=== PATIENT | female | born 1985 | race African-American/Black ===

== ENCOUNTER 2019-03-21 15:05 | Inpatient (IN) | payer MEDICAID ==
[~2019-03-21] VITALS: Ht 165.1 cm; Wt 63.2 kg
--- NOTE | 2019-03-21 15:08 | NUR ---
ED Nurse Note: Pt arrived in the ED from home with c/o of Abdominal Pain, N/V x 1 today, started since yesterday. Pt has history of Asthma and Pacreatitis. Pt has allergies to Iodine. Placed on bed, hooked to patient services rep.
--- NOTE | 2019-03-21 15:10 | Emergency Room Report ---
History of Present Illness General Chief Complaint: Abdominal Pain Source: Patient, EMS Present Illness HPI Disclaimer: Please note that this report is being documented using DRAGON technology. This can lead to erroneous entry secondary to incorrect interpretation by the dictating instrument. HPI: 33-year-old female presents for evaluation of abdominal pain. She has a history of alcohol abuse and pancreatitis. Symptoms began 3 days ago with persistent epigastric and left upper quadrant sharp stabbing abdominal pain that is nonradiating. Persistent nausea, vomiting and diarrhea. Denies hematemesis or hematochezia or melena. Denies intra-abdominal surgeries in the past. Last drink was 2 days ago. Patient was noted to be tachycardic, in distress and hypoglycemic by EMS en route with a fingerstick glucose of 47. Given oral glucose and oral Zofran. PMH: Pancreatitis, tonsillectomy PSH: Tonsillectomy Allergies: Iodine but tolerated IV contrast in the past Social Hx: Alcohol abuse, current tobacco use Allergies: Coded Allergies: IODINE (Unverified Allergy, Unknown, 03/21/19) Patient History Now: No Nursing Documentation-PMH Hx Asthma: Yes Review of Systems All Other Systems: negative except mentioned in HPI Physical Exam Vital Signs Date Time Temp Pulse Resp B/P (MAP) Pulse Ox O2 Delivery O2 Flow Rate FiO2 03/21/19 14:59 98.4 90 18 130/90 (103) 98 Room Air General: Awake and alert, appears uncomfortable, doubled over in the gurney holding her abdomen. HEENT: NC/AT. EOMI. Cardiovascular: RRR. S1 and S2 normal. No murmur appreciated Resp: Normal work of breathing. No cough, wheezing or crackles appreciated Abdomen: Abdomen is soft, nondistended. Very tender to palpation in the upper quadrants, epigastrium, periumbilical region. Skin: Intact. No abrasions, laceration or rash over the exposed skin MSK: Normal tone and bulk. Moving all extremities. No obvious deformity. Neuro: Awake and alert. Mentating appropriately. Medical Decision Making Diagnostic Impression: Primary Impression: Pancreatitis Additional Impressions: Fatty liver Elevated liver enzymes ER Course 33-year-old female with history of alcohol induced pancreatitis presents for evaluation of abdominal pain vomiting hypoglycemia. Differential includes was not limited to acute pancreatitis, necrotizing infection, intra-abdominal abscess, bowel obstruction, cholecystitis, peptic ulcer disease, gastroenteritis , viral syndrome, diverticulitis, appendicitis. She will be ordered IV fluids, antiemetics, antacids, pain medication. Broad metabolic and infectious work-up initiated. Will obtain a CT scan of the abdomen and pelvis with IV contrast. She will be treated with Benadryl prior noting a hive allergic reaction to iodine but has tolerated many abdominal scans in the past at other facilities according to patient. Laboratory Tests Test 03/21/19 15:30 White Blood Count 6.0 K/UL (4.8-10.8) Red Blood Count 4.55 M/UL (4.20-5.40) Hemoglobin 16.3 G/DL (12.0-16.0) H Hematocrit 45.7 % (37.0-47.0) Mean Corpuscular Volume 101 FL (80-99) H Mean Corpuscular Hemoglobin 35.7 PG (27.0-31.0) H Mean Corpuscular Hemoglobin Concent 35.6 G/DL (32.0-36.0) Red Cell Distribution Width 11.6 % (11.6-14.8) Platelet Count 213 K/UL (150-450) Mean Platelet Volume 6.3 FL (6.5-10.1) L Neutrophils (%) (Auto) 86.2 % (45.0-75.0) H Lymphocytes (%) (Auto) 7.9 % (20.0-45.0) L Monocytes (%) (Auto) 5.3 % (1.0-10.0) Eosinophils (%) (Auto) 0.0 % (0.0-3.0) Basophils (%) (Auto) 0.6 % (0.0-2.0) Urine Color Yellow Urine Appearance Slightly cloudy Urine pH 6 (4.5-8.0) Urine Specific [place] 1.025 (1.005-1.035) Urine Protein 2+ (NEGATIVE) H Urine Glucose (UA) Negative (NEGATIVE) Urine Ketones 4+ (NEGATIVE) H Urine Blood Negative (NEGATIVE) Urine Nitrite Negative (NEGATIVE) Urine Bilirubin Negative (NEGATIVE) Urine Urobilinogen Normal MG/DL (0.0-1.0) Urine Leukocyte Esterase Negative (NEGATIVE) Urine RBC 0-2 /HPF (0 - 2) Urine WBC 0-2 /HPF (0 - 2) Urine Squamous Epithelial Cells Many /LPF (NONE/OCC) H Urine Bacteria Few /HPF (NONE) Urine HCG, Qualitative Negative (NEGATIVE) Sodium Level 135 MMOL/L (136-145) L Potassium Level 5.0 MMOL/L (3.5-5.1) Chloride Level 95 MMOL/L (98-107) L Carbon Dioxide Level 19 MMOL/L (21-32) L Anion Gap 21 mmol/L (5-15) H Blood Urea Nitrogen 13 mg/dL (7-18) Creatinine 0.9 MG/DL (0.55-1.30) Estimate Glomerular Filtration Rate > 60 mL/min (>60) Glucose Level 83 MG/DL (74-106) Calcium Level 10.0 MG/DL (8.5-10.1) Total Bilirubin 1.6 MG/DL (0.2-1.0) H Direct Bilirubin 0.7 MG/DL (0.0-0.3) H Aspartate Amino Transferase (AST) 359 U/L (15-37) H Alanine Aminotransferase (ALT) 189 U/L (12-78) H Alkaline Phosphatase 151 U/L (46-116) H Total Protein 8.9 G/DL (6.4-8.2) H Albumin 4.3 G/DL (3.4-5.0) Globulin 4.6 g/dL Albumin/Globulin Ratio 0.9 (1.0-2.7) L Lipase 968 U/L (73-393) H CT/MRI/US Diagnostic Results CT/MRI/US Diagnostic Results : Impression Preliminary Findings Only See Final Report For Complete Findings CT ABDOMEN & PELVIS With Contrast: Stranding and edema at the body and tail of the pancreas consistent with pancreatitis, clinically correlate Hepatic steatosis Lung bases are clear No bowel dilation or free air Normal caliber appendix without secondary signs 3.2 cm cystic lesion right ovary No free fluid Radiologist: Evaristo Bell M.D. Reevaluation Time: 18:48 Last Vital Signs Date Time Temp Pulse Resp B/P (MAP) Pulse Ox O2 Delivery O2 Flow Rate FiO2 03/21/19 14:59 98.4 90 18 130/90 (103) 98 Room Air Reevaluation Impression Labs show elevated lipase consistent with pancreatitis as well as elevated LFTs , alkaline phosphatase, bilirubin. No significant white count, no evidence of urinary tract infection. CT consistent with acute pancreatitis but no evidence of necrosis or abscess. Ultrasound was ordered showing fatty liver with trace fluid around the pancreas but no evidence of stones or acute cholecystitis. Formal reads are pending. Patient continues to receive IV fluids, pain medication and antiemetics. She will be admitted for acute pancreatitis to panel. Disposition: ADMITTED INPATIENT Condition: Serious Cezar Jimenez MD Mar 21, 2019 15:10
[2019-03-21] MEDS ORDERED: Omnipaque-300 100ml vial INJ PRN (15:15)
[2019-03-21] MEDS ORDERED: HYDROmorphone 1mg/ml Carpuject IVP ONE (15:15)
[2019-03-21] MEDS ORDERED: DiphenhydrAMINE 50mg/ml Inj IVP ONE ×2 (15:15→19:00)
[2019-03-21 15:43] LABS: HEMATOCRIT 45.7 % (37.0-47.0); HEMOGLOBIN 16.3 G/DL (12.0-16.0); MEAN CORPUSCULAR VOLUME 101 FL (80-99); PLATELET COUNT 213 K/UL (150-450); RED BLOOD COUNT 4.55 M/UL (4.20-5.40); RED CELL DISTRIBUTION WIDTH 11.6 % (11.6-14.8)
[2019-03-21 15:46] LABS: NEUTROPHILS % (AUTO) 86.2 % (45.0-75.0)
[2019-03-21 15:47] LABS: BASOPHILS % (AUTO) 0.6 % (0.0-2.0); LYMPHOCYTES % (AUTO) 7.9 % (20.0-45.0); MONOCYTES % (AUTO) 5.3 % (1.0-10.0)
[2019-03-21 15:48] LABS: ANION GAP 21 mmol/L (5-15); BLOOD UREA NITROGEN 13 mg/dL (7-18); CARBON DIOXIDE 19 MMOL/L (21-32); CHLORIDE 95 MMOL/L (98-107); CREATININE 0.9 MG/DL (0.55-1.30); SODIUM 135 MMOL/L (136-145)
[2019-03-21 15:51] LABS: APPEARANCE,URINE SLIGHTLY CLOUDY; BILIRUBIN, URINE NEGATIVE (NEGATIVE); GLUCOSE, URINE (UA) NEGATIVE (NEGATIVE); KETONES,URINE 4+ (NEGATIVE); LEUKOCYTE ESTERASE ,URINE NEGATIVE (NEGATIVE); NITRITE,URINE NEGATIVE (NEGATIVE); PH,URINE 6 (4.5-8.0); PROTEIN,URINE 2+ (NEGATIVE); UROBILINOGEN,URINE NORMAL MG/DL (0.0-1.0)
[2019-03-21 15:53] LABS: COLOR,URINE YELLOW
[2019-03-21 15:59] LABS: ALANINE AMINOTRANSFERASE 189 U/L (12-78); ALBUMIN 4.3 G/DL (3.4-5.0); ALBUMIN/GLOBULIN RATIO 0.9 (1.0-2.7); ALKALINE PHOSPHATASE 151 U/L (46-116); ASPARTATE AMINO TRANSFERASE 359 U/L (15-37); BILIRUBIN,TOTAL 1.6 MG/DL (0.2-1.0)
[2019-03-21 16:00] VITALS: BP 111/63
[2019-03-21 16:10] LABS: BILIRUBIN,DIRECT 0.7 MG/DL (0.0-0.3)
--- NOTE | 2019-03-21 16:13 | NUR ---
ED Nurse Note: pt remains alert and oriented x4 tolerates small amt ice chips well.
[2019-03-21 17:00] VITALS: BP 102/88
--- NOTE | 2019-03-21 17:19 | NUR ---
ED Nurse Note: pt relates no inpt admissions in past 30 days, no swabs obtained as pt doesnt meet criteria. pt remains as previous no increased discomfort
--- NOTE | 2019-03-21 17:50 | NUR ---
ED Nurse Note: pt to ct scan
--- NOTE | 2019-03-21 18:44 | Diagnostic Imaging Report ---
Indication: Abdominal pain Technique: Spiral acquisitions obtained through the abdomen and pelvis. No oral contrast utilized, per emergency room physician request. No IV contrast utilized, due to history of contrast reaction. Multiplanar reconstructions were generated. Total dose length product 598 mGycm. CTDIvol(s) 11 mGy. Dose reduction achieved using automated exposure control Comparison: None Findings: There are colonic diverticula. No evidence of acute diverticulitis demonstrated. The appendix is normal, best appreciated on the coronal reconstructed images. No small bowel distention. No free or loculated intraperitoneal gas or fluid is evident. The distal esophagus, stomach, duodenum are unremarkable. The pancreatic margins are somewhat indistinct, and there is slight increased attenuation of the fat immediately surrounding the pancreas. No gallstones or biliary ductal dilatation are visualized. No focal peripancreatic fluid collections are evident. Lack of IV contrast limits assessment of solid organs. The liver is enlarged and diffusely hypoattenuating. No gross focal abnormality demonstrated. The spleen, adrenals, kidneys are unremarkable. No retroperitoneal or mesenteric mass or adenopathy. There is a 3.4 cm cyst in the right ovary. The included lung bases are clear. The bones demonstrate minimal degenerative change of the lumbosacral junction Impression: Indistinct pancreatic margins and increased attenuation of the peripancreatic fat, consistent with acute pancreatitis. Evaluation for necrosis is limited in the absence of IV contrast Enlarged fatty liver 3.4 cm right ovarian cyst, almost certainly benign This agrees with the preliminary interpretation provided overnight by [facility] teleradiology service. The CT scanner at [facility] is accredited by the [employer] and the scans are performed using protocols designed to limit radiation exposure to as low as reasonably achievable to attain images of sufficient resolution adequate for diagnostic evaluation.
[2019-03-21] MEDS ORDERED: Morphine Sulfate 4mg/ml Inj (IV USE ONLY) IVP PRN (19:00)
--- NOTE | 2019-03-21 19:01 | NUR ---
ED Nurse Note: ct resulted and pt to have abd u/s before admission to med surg. charger operator helper aware. pt with meds being given by rn
--- NOTE | 2019-03-21 19:10 | NUR ---
ED Nurse Note: pt care endorsed by Katharine Chapin RN. pt does not appear to be in any distress at this time. pt has fluids running and US is at bedside.
--- NOTE | 2019-03-21 19:15 | NUR ---
HAND-OFF: Report given to NIMO Dyer.
--- NOTE | 2019-03-21 19:42 | NUR ---
NURSE NOTES: Received a report from INMO Dyer. Awaiting for the pt's arrival.
[2019-03-21] MEDS ORDERED: VENTOLIN HFA18 GM INH (19:43)
--- NOTE | 2019-03-21 19:44 | NUR ---
ED Nurse Note: pt care endorsed to admitting nurse NIMO Alcantar
[2019-03-21 19:52] VITALS: BP 108/92
[2019-03-21 20:00] VITALS: BP 124/86
--- NOTE | 2019-03-21 20:00 | NUR ---
NURSE NOTES: Pt arrived in the unit. AAOX4. Able to make needs known. On room air. Belongings signed. Bed in lowest position. Bed alarm is on. Call light within reach. Will continue to monitor.
--- NOTE | 2019-03-21 20:02 | NUR ---
NURSE NOTES: Called Dr. Vitale for admission orders. Awaiting for call back.
--- NOTE | 2019-03-21 21:00 | NUR ---
NURSE NOTES: BS: 86
[2019-03-21] MEDS ORDERED: NKM (21:40)
[2019-03-21] MEDS: Morphine Sulfate 2mg/ml Inj(IV/IM USE ONLY) IVP PRN (22:52)
--- NOTE | 2019-03-21 23:27 | NUR ---
NURSE NOTES: Called Dr. Preston because the pt is c/o abdominal pain, rated the pain 8/10. Awaiting for call back.
--- NOTE | 2019-03-21 23:57 | NUR ---
NURSE NOTES: Called Dr. Preston for the 2nd time because the pt is still c/o abdominal pain, rated the pain 8/10. Awaiting for call back.
[2019-03-22] VITALS: BP 122/85
--- NOTE | 2019-03-22 00:47 | NUR ---
NURSE NOTES: Called Dr. Preston for the 3rd time because the pt is still c/o abdominal pain, rated the pain 8/10. Awaiting for call back. Nursing Service Coordinator [facility] Lupe made aware.
--- NOTE | 2019-03-22 01:30 | NUR ---
NURSE NOTES: Informed Nursing Household Chores Lupe that no response from Dr. Preston. Nursing Household Chores Lupe will call Dr. Preston.
--- NOTE | 2019-03-22 01:35 | NUR ---
NURSE NOTES: Nursing Refurbish Technician Lupe called Dr. Preston, but no response yet.
[2019-03-22] MEDS: Morphine Sulfate 2mg/ml Inj(IV/IM USE ONLY) IVP PRN ×2 (02:59→06:45)
[2019-03-22 04:00] VITALS: BP 138/86
--- NOTE | 2019-03-22 04:45 | Consultation ---
DATE OF CONSULTATION: 03/21/2019 GASTROENTEROLOGY CONSULTATION CONSULTING PHYSICIAN: Angie Davis M.D. CHIEF COMPLAINT: I was asked to see this patient by Dr. Mercedes Vitale for evaluation of alcoholic pancreatitis. HISTORY OF PRESENT ILLNESS: The patient is a 33-year-old woman with extensive alcohol use history, who comes into the hospital with a two-day history of severe epigastric abdominal pain with nausea and vomiting. The patient has had episodes of pancreatitis before and has been admitted to other hospital. She drinks one half to one pint of liquor daily. She has been noting this for about 10 years. In the emergency room, she was found to have pancreatitis by another criteria with a lipase of [address] scan therefore should be repeated. PAST MEDICAL HISTORY: History of asthma and history of kidney stones. FAMILY HISTORY: Positive for diabetes. SOCIAL HISTORY: The patient smokes cigarettes and also drinks alcohol as described above. She is not and has no children. MEDICATIONS: See the chart list for details. REVIEW OF SYSTEMS: Otherwise negative. PHYSICAL EXAMINATION: GENERAL: A well-developed and well-nourished woman seen in her room. HEENT: Normocephalic and atraumatic. Sclerae are anicteric. Oropharynx is clear. NECK: Supple. CHEST: Clear to auscultation. CARDIOVASCULAR: Revealed a regular rate. ABDOMEN: Soft, but tender, especially in the epigastric region without guarding, rebound, or masses. EXTREMITIES: Revealed no edema. LABORATORY DATA: Noted. ASSESSMENT: This patient presents with alcoholic pancreatitis with both the CT scan criteria as well as clinical and laboratory criteria met. In addition, her liver profile is consistent with alcoholic hepatitis. She was strongly advised to discontinue drinking indefinitely as the only remedy to her recurrent episodes of pancreatitis. Her management is conservative and at this point should be kept NPO today and diet can be advanced tomorrow as tolerated. I will increase IV fluids since the first 24-hour IV hydration should be significant. Her blood pressure and volume status and laboratory parameters should be now followed closely. Pain medications can be given as needed and I agree with acid blockade with Pepcid or for Protonix. RECOMMENDATIONS: Per above discussion and per orders written in the chart. Thank you for asking me to participate in the care of this patient. Angie Davis M.D. DR: RUBEN JOB#: [id number] CC:
[2019-03-22 07:15] LABS: ALANINE AMINOTRANSFERASE 121 U/L (12-78); ALBUMIN 3.5 G/DL (3.4-5.0); ALKALINE PHOSPHATASE 110 U/L (46-116); ANION GAP 17 mmol/L (5-15); ASPARTATE AMINO TRANSFERASE 155 U/L (15-37); BILIRUBIN,TOTAL 1.1 MG/DL (0.2-1.0); BLOOD UREA NITROGEN 13 mg/dL (7-18); CALCIUM 9.2 MG/DL (8.5-10.1); CARBON DIOXIDE 19 MMOL/L (21-32); CHLORIDE 100 MMOL/L (98-107); CREATININE 0.8 MG/DL (0.55-1.30); POTASSIUM 3.9 MMOL/L (3.5-5.1); SODIUM 136 MMOL/L (136-145)
--- NOTE | 2019-03-22 07:15 | NUR ---
HAND-OFF: Report given to NIMO Roblero.
[2019-03-22 07:16] LABS: BILIRUBIN,DIRECT 0.4 MG/DL (0.0-0.3)
--- NOTE | 2019-03-22 07:35 | NUR ---
NURSE NOTES: Patient awake, alert x4; on room air, no sing of distress and shortness of breath; no sing of chest pain; IV Right-Wrist 24G NS 150cc running; side rails up x2, breaks engaged, bed at lowest position; call light within reach; will keep monitoring.
[2019-03-22 07:59] LABS: HEMOGLOBIN 14.2 G/DL (12.0-16.0); MEAN CORPUSCULAR VOLUME 100 FL (80-99); PLATELET COUNT 181 K/UL (150-450); RED BLOOD COUNT 3.89 M/UL (4.20-5.40); RED CELL DISTRIBUTION WIDTH 11.9 % (11.6-14.8); WHITE BLOOD COUNT 8.4 K/UL (4.8-10.8)
[2019-03-22 08:00] VITALS: BP 150/93
--- NOTE | 2019-03-22 08:51 | Consultation ---
History of Present Illness General Date patient seen: Mar 22, 2019 Time patient seen: 07:00 - am Chief Complaint: Abdominal pain Referring physician: Iam Reason for Consultation: Pain mangement Present Illness HPI HISTORY OF PRESENT ILLNESS: The patient is a 33-year-old woman with extensive alcohol use history, who comes into the hospital with a two-day history of severe epigastric abdominal pain with nausea and vomiting. The patient has had episodes of pancreatitis before and has been admitted to other hospital. Was started on Dilaudid 1mg IV Q3H PRN severe pain. We were consulted so patient has adequate pain control while here in the hospital. PAST MEDICAL HISTORY: History of asthma and history of kidney stones. SOCIAL HISTORY: The patient smokes cigarettes and also drinks alcohol denies IV drug abuse Allergies: Coded Allergies: IODINE (Unverified Allergy, Unknown, 03/21/19) Medication History Scheduled Albuterol Sulfate (Ventolin Hfa), 2 PUFFS INH EVERY 6 HOURS, (Reported) No Known Medications* (NKM - No Known Medications*), 0 ., (Reported) Patient History Healthcare decision maker Resuscitation status Full Code Advanced Directive on File Review of Systems Constitutional: Reports: no symptoms Eye: Reports: no symptoms ENT: Reports: no symptoms Respiratory: Reports: no symptoms Cardiovascular: Reports: no symptoms Gastrointestinal: Reports: abdominal pain Genitourinary: Reports: no symptoms Musculoskeletal: Reports: no symptoms Skin: Reports: no symptoms Psychiatric: Reports: no symptoms Neurological: Reports: no symptoms Endocrine: Reports: no symptoms Hematologic/Lymphatic: Reports: no symptoms Physical Exam Physical Exam Narrative PHYSICAL EXAMINATION: GENERAL: A well-developed and well-nourished woman seen in her room. HEENT: PERRLA. NECK: Supple. CHEST: Clear to auscultation. CARDIOVASCULAR: Revealed a regular rate. ABDOMEN: Soft, but tender, especially in the epigastric region without guarding, rebound, or masses. EXTREMITIES: Revealed no edema. Last 24 Hour Vital Signs Date Time Temp Pulse Resp B/P (MAP) Pulse Ox O2 Delivery O2 Flow Rate FiO2 03/22/19 07:15 97.9 03/22/19 04:00 97.9 68 18 138/86 (103) 100 03/22/19 00:00 98.1 87 20 122/85 (97) 100 03/21/19 21:45 Room Air 03/21/19 21:00 Room Air 03/21/19 20:00 98.3 98 20 124/86 (99) 100 03/21/19 19:52 85 16 108/92 98 Room Air 03/21/19 19:45 98.4 87 18 102/88 100 Room Air 03/21/19 19:41 98.4 03/21/19 17:00 87 18 102/88 100 Room Air 03/21/19 16:13 98.4 03/21/19 16:00 90 18 111/63 99 Room Air 03/21/19 15:30 90 18 Room Air 03/21/19 14:59 98.4 90 18 130/90 (103) 98 Room Air Intake and Output 03/21/19 03/22/19 18:59 06:59 Intake Total 2000 ml 2050 ml Output Total 350 ml Balance 2000 ml 1700 ml Intake Oral 0 ml 0 ml IV Total 2000 ml 2050 ml Output Urine Total 350 ml # Voids 1 2 Laboratory Tests Test 03/21/19 15:30 03/22/19 05:26 White Blood Count 6.0 K/UL (4.8-10.8) 8.4 K/UL (4.8-10.8) Red Blood Count 4.55 M/UL (4.20-5.40) 3.89 M/UL (4.20-5.40) L Hemoglobin 16.3 G/DL (12.0-16.0) H 14.2 G/DL (12.0-16.0) Hematocrit 45.7 % (37.0-47.0) 39.0 % (37.0-47.0) Mean Corpuscular Volume 101 FL (80-99) H 100 FL (80-99) H Mean Corpuscular Hemoglobin 35.7 PG (27.0-31.0) H 36.6 PG (27.0-31.0) H Mean Corpuscular Hemoglobin Concent 35.6 G/DL (32.0-36.0) 36.5 G/DL (32.0-36.0) H Red Cell Distribution Width 11.6 % (11.6-14.8) 11.9 % (11.6-14.8) Platelet Count 213 K/UL (150-450) 181 K/UL (150-450) Mean Platelet Volume 6.3 FL (6.5-10.1) L 6.5 FL (6.5-10.1) Neutrophils (%) (Auto) 86.2 % (45.0-75.0) H % (45.0-75.0) Lymphocytes (%) (Auto) 7.9 % (20.0-45.0) L % (20.0-45.0) Monocytes (%) (Auto) 5.3 % (1.0-10.0) % (1.0-10.0) Eosinophils (%) (Auto) 0.0 % (0.0-3.0) % (0.0-3.0) Basophils (%) (Auto) 0.6 % (0.0-2.0) % (0.0-2.0) Urine Color Yellow Urine Appearance Slightly cloudy Urine pH 6 (4.5-8.0) Urine Specific [place] 1.025 (1.005-1.035) Urine Protein 2+ (NEGATIVE) H Urine Glucose (UA) Negative (NEGATIVE) Urine Ketones 4+ (NEGATIVE) H Urine Blood Negative (NEGATIVE) Urine Nitrite Negative (NEGATIVE) Urine Bilirubin Negative (NEGATIVE) Urine Urobilinogen Normal MG/DL (0.0-1.0) Urine Leukocyte Esterase Negative (NEGATIVE) Urine RBC 0-2 /HPF (0 - 2) Urine WBC 0-2 /HPF (0 - 2) Urine Squamous Epithelial Cells Many /LPF (NONE/OCC) H Urine Bacteria Few /HPF (NONE) Urine HCG, Qualitative Negative (NEGATIVE) Sodium Level 135 MMOL/L (136-145) L 136 MMOL/L (136-145) Potassium Level 5.0 MMOL/L (3.5-5.1) 3.9 MMOL/L (3.5-5.1) Chloride Level 95 MMOL/L (98-107) L 100 MMOL/L (98-107) Carbon Dioxide Level 19 MMOL/L (21-32) L 19 MMOL/L (21-32) L Anion Gap 21 mmol/L (5-15) H 17 mmol/L (5-15) H Blood Urea Nitrogen 13 mg/dL (7-18) 13 mg/dL (7-18) Creatinine 0.9 MG/DL (0.55-1.30) 0.8 MG/DL (0.55-1.30) Estimat Glomerular Filtration Rate > 60 mL/min (>60) > 60 mL/min (>60) Glucose Level 83 MG/DL (74-106) 94 MG/DL (74-106) Calcium Level 10.0 MG/DL (8.5-10.1) 9.2 MG/DL (8.5-10.1) Total Bilirubin 1.6 MG/DL (0.2-1.0) H 1.1 MG/DL (0.2-1.0) H Direct Bilirubin 0.7 MG/DL (0.0-0.3) H 0.4 MG/DL (0.0-0.3) H Aspartate Amino Transf (AST/SGOT) 359 U/L (15-37) H 155 U/L (15-37) H Alanine Aminotransferase (ALT/SGPT) 189 U/L (12-78) H 121 U/L (12-78) H Alkaline Phosphatase 151 U/L (46-116) H 110 U/L (46-116) Total Protein 8.9 G/DL (6.4-8.2) H 7.1 G/DL (6.4-8.2) Albumin 4.3 G/DL (3.4-5.0) 3.5 G/DL (3.4-5.0) Globulin 4.6 g/dL 3.6 g/dL Albumin/Globulin Ratio 0.9 (1.0-2.7) L 1.0 (1.0-2.7) Lipase 968 U/L (73-393) H > 2000 U/L (73-393) H Neutrophils % (Manual) Pending Lymphocytes % (Manual) Pending Platelet Estimate Pending Platelet Morphology Pending Height (Feet): 5 Height (Inches): 5.00 Weight (Pounds): 139 Medications Current Medications Medications (Trade) Dose Ordered Sig/Cindy Route PRN Reason Start Time Stop Time Status Last Admin Dose Admin Diphenhydramine HCl (Benadryl) 25 mg Q4H PRN ORAL Itching 03/22/19 04:30 04/21/19 04:29 03/22/19 06:21 Famotidine (Pepcid I.v.) 20 mg Q12HR IVP 03/21/19 22:30 04/20/19 22:29 03/21/19 22:52 Hydromorphone HCl (Dilaudid) 1 mg Q3H PRN IVP For Pain 03/22/19 08:15 03/29/19 08:14 Metoclopramide HCl (Reglan) 5 mg Q6H PRN ORAL NAUSEA/VOMITING 2ND CHOICE 03/22/19 06:15 04/21/19 06:14 Ondansetron HCl (Zofran) 4 mg Q6H PRN IVP Nausea & Vomiting 03/21/19 20:15 04/20/19 20:14 03/22/19 03:22 Sodium Chloride 1,000 ml @ 150 mls/hr Q6H40M IV 03/21/19 22:30 04/20/19 22:29 03/22/19 06:46 Assessment/Plan Assessment/Plan: (1) Abdominal pain (2) Pancreatitis Pt will be continued on Dilaudid. D/w Dr. Preston and he concurred Thank you for the courtesy of this consultation. Everardo Zapata Mar 22, 2019 08:51
[2019-03-22] MEDS: HYDROmorphone 1mg/ml Carpuject IVP PRN ×5 (09:00→21:41)
--- NOTE | 2019-03-22 09:11 | General Progress Note ---
Assessment/Plan Assessment/Plan: Assessment - Alcoholic pancreatitis- lipase higher today - Alcoholic hepatitis - improving Recommendation NPO IVF Pain control anti emetics follow labs and exam Subjective Allergies: Coded Allergies: IODINE (Unverified Allergy, Unknown, 03/21/19) Subjective c/o abd pain c/o vomiting patient is NPO Objective Last 24 Hour Vital Signs Date Time Temp Pulse Resp B/P (MAP) Pulse Ox O2 Delivery O2 Flow Rate FiO2 03/22/19 08:00 98.9 67 18 150/93 (112) 99 03/22/19 07:15 97.9 03/22/19 04:00 97.9 68 18 138/86 (103) 100 03/22/19 00:00 98.1 87 20 122/85 (97) 100 03/21/19 21:45 Room Air 03/21/19 21:00 Room Air 03/21/19 20:00 98.3 98 20 124/86 (99) 100 03/21/19 19:52 85 16 108/92 98 Room Air 03/21/19 19:45 98.4 87 18 102/88 100 Room Air 03/21/19 19:41 98.4 03/21/19 17:00 87 18 102/88 100 Room Air 03/21/19 16:13 98.4 03/21/19 16:00 90 18 111/63 99 Room Air 03/21/19 15:30 90 18 Room Air 03/21/19 14:59 98.4 90 18 130/90 (103) 98 Room Air Intake and Output 03/21/19 03/22/19 18:59 06:59 Intake Total 2000 ml 2050 ml Output Total 350 ml Balance 2000 ml 1700 ml Intake Oral 0 ml 0 ml IV Total 2000 ml 2050 ml Output Urine Total 350 ml # Voids 1 2 Laboratory Tests 03/21/19 15:30: White Blood Count 6.0, Red Blood Count 4.55, Hemoglobin 16.3H, Hematocrit 45.7, Mean Corpuscular Volume 101H, Mean Corpuscular Hemoglobin 35.7H, Mean Corpuscular Hemoglobin Concent 35.6, Red Cell Distribution Width 11.6, Platelet Count 213, Mean Platelet Volume 6.3L, Neutrophils (%) (Auto) 86.2H, Lymphocytes (%) (Auto) 7.9L, Monocytes (%) (Auto) 5.3, Eosinophils (%) (Auto) 0.0, Basophils (%) (Auto) 0.6, Urine Color Yellow, Urine Appearance Slightly cloudy, Urine pH 6, Urine Specific [place] 1.025, Urine Protein 2+H, Urine Glucose (UA) Negative, Urine Ketones 4+H, Urine Blood Negative, Urine Nitrite Negative, Urine Bilirubin Negative, Urine Urobilinogen Normal, Urine Leukocyte Esterase Negative, Urine RBC 0-2, Urine WBC 0-2, Urine Squamous Epithelial Cells ManyH, Urine Bacteria Few, Urine HCG, Qualitative Negative, Sodium Level 135L, Potassium Level 5.0, Chloride Level 95L, Carbon Dioxide Level 19L, Anion Gap 21H , Blood Urea Nitrogen 13, Creatinine 0.9, Estimat Glomerular Filtration Rate > 60, Glucose Level 83, Calcium Level 10.0, Total Bilirubin 1.6H, Direct Bilirubin 0.7H, Aspartate Amino Transf (AST/SGOT) 359H, Alanine Aminotransferase (ALT/SGPT) 189H, Alkaline Phosphatase 151H, Total Protein 8.9H , Albumin 4.3, Globulin 4.6, Albumin/Globulin Ratio 0.9L, Lipase 968H 03/22/19 05:26: White Blood Count 8.4, Red Blood Count 3.89L, Hemoglobin 14.2, Hematocrit 39.0, Mean Corpuscular Volume 100H, Mean Corpuscular Hemoglobin 36.6H, Mean Corpuscular Hemoglobin Concent 36.5H, Red Cell Distribution Width 11.9, Platelet Count 181, Mean Platelet Volume 6.5, Neutrophils (%) (Auto) , Lymphocytes (%) (Auto) , Monocytes (%) (Auto) , Eosinophils (%) (Auto) , Basophils (%) (Auto) , Sodium Level 136, Potassium Level 3.9, Chloride Level 100 , Carbon Dioxide Level 19L, Anion Gap 17H, Blood Urea Nitrogen 13, Creatinine 0.8, Estimat Glomerular Filtration Rate > 60, Glucose Level 94, Calcium Level 9.2, Total Bilirubin 1.1H, Direct Bilirubin 0.4H, Aspartate Amino Transf (AST/ SGOT) 155H, Alanine Aminotransferase (ALT/SGPT) 121H, Alkaline Phosphatase 110, Total Protein 7.1, Albumin 3.5, Globulin 3.6, Albumin/Globulin Ratio 1.0, Lipase > 2000H, Neutrophils % (Manual) [Pending], Lymphocytes % (Manual) [ Pending], Platelet Estimate [Pending], Platelet Morphology [Pending] Height (Feet): 5 Height (Inches): 5.00 Weight (Pounds): 139 Objective WDWN AA woman NCAT supple CTA RR abd (+) epigastric TTP with mild guarding no edema non focal Angie Davis MD Mar 22, 2019 09:11
--- NOTE | 2019-03-22 09:19 | NUR ---
NURSE NOTES: Alberto is asking medication to help her with bowel movement. I communicated the matter to MD Davis, waiting for order.
--- NOTE | 2019-03-22 09:23 | NUR ---
NURSE NOTES: Order received from MD Davis and carried out as ordered.
[2019-03-22] MEDS ORDERED: Fleet's Enema 133ml RECTAL PRN (09:30)
--- NOTE | 2019-03-22 10:57 | Diagnostic Imaging Report ---
Indication: Abdominal pain, abnormal liver function tests Technique: Jorge-scale and duplex images of the upper abdomen were obtained Comparison: CT scan performed one hour earlier Findings: Gallbladder is unremarkable, without stones, wall thickening, nor pericholecystic fluid. Sonographic Rivers's sign is negative. Common bile duct measures one mm in diameter. No intrahepatic biliary ductal dilatation. Liver demonstrates increased echogenicity, compatible with fatty changes described on recent CT scan. Portal vein and hepatic veins are patent. There is suggestion of slight edema around the body of the pancreas. Spleen is unremarkable. Left kidney measures 10 cm in length. Right kidney measures 9.5 cm length. Both kidneys demonstrate normal echogenicity. There is no hydronephrosis. No focal abnormality . Non-aneurysmal abdominal aorta . Impression: Negative for gallstones or dilated bile ducts Slight peripancreatic edema, corresponding to findings reported on recent CT scan Fatty liver, also described on recent CT
--- NOTE | 2019-03-22 11:55 | NUR ---
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 98.4 HR 90 RR 18 B/P 130/90 LIPASE 968 AST 359 ALT 189 ALK PHOS 151 ABD/PEL CT=Indistinct pancreatic margins and increased attenuation of the peripancreatic fat, consistent with acute pancreatitis. Evaluation for necrosis is limited in the absence of IV contrast IS: IV BOLUS NS X 1 LITER D50 IV X 2 PEPCID IV ZOFRAN IV DILAUDID IV BENADRYL IV ADMITTED TO MED/SURG @ 1945 MED/SURG STATUS DCP RETURN HOME
--- NOTE | 2019-03-22 15:45 | Consultation ---
DATE OF CONSULTATION: 03/22/2019 ENDOCRINOLOGY CONSULTATION CONSULTING PHYSICIAN: Dimas Jacobson M.D. REFERRING PHYSICIAN: Mercedes Vitale M.D. REASON FOR CONSULTATION: Hypoglycemia. HISTORY OF PRESENT ILLNESS: The patient is a 33-year-old female with past medical history of alcohol abuse and pancreatitis, who presented to the hospital with symptomatology with left upper quadrant pain. Also, she was hypoglycemic at 47, was not able to eat and she was vomiting. The patient to the emergency department and transferred to the floor for observation and treatment. I was called for managing her glucose issues. PAST MEDICAL HISTORY: 1. Pancreatitis. 2. Alcohol abuse. PAST SURGICAL HISTORY: Tonsillectomy. ALLERGIES: To iodine, not sure. SOCIAL HISTORY: Alcohol abuse and she is a smoker. REVIEW OF SYSTEMS: As per history of present illness. MEDICATIONS: Reviewed. LABORATORY DATA: WBC 6, hemoglobin 16, hematocrit 45, platelet of 213. Sodium 135, potassium 5, chloride 95, bicarb 19, BUN 13, creatinine 0.9. Lipase is 168. AST, ALT, and alkaline phosphatase are all elevated. Glucose 82. PHYSICAL EXAMINATION: GENERAL: She is resting. VITAL SIGNS: Blood pressure is 122/85, pulse 87, temperature 98.1, respiratory rate of 18. HEAD AND NECK: No JVD. HEART: Regular. LUNGS: Clear. ABDOMEN: Positive bowel sounds. EXTREMITIES: No clubbing, cyanosis, or edema. DIAGNOSES: 1. Hypoglycemia due to poor oral intake.s 2. Pancreatitis. 3. Hypothyroid. 4. Alcohol abuse. DISCUSSION: 1. Continue IV fluids. 2. Continue glucose monitoring insulin coverage. 3. I expect the patient's glucose is stabilized and I will follow her during the hospital stay. Thank you, Dr. Vitale, for the courtesy of this consultation. Dimas Jacobson M.D. DR: NIMO/BENJAMIN JOB#: [id number] CC:
[2019-03-22 16:00] VITALS: BP 136/94
--- NOTE | 2019-03-22 19:12 | NUR ---
HAND-OFF: Report given to NIMO Gould.
--- NOTE | 2019-03-22 19:30 | NUR ---
NURSE NOTES: Patient received in bed, awake and alert. IVF infusing on right wrist. Call light in reach, Will continue pain management and care.
[2019-03-22 20:00] VITALS: BP 132/93
--- NOTE | 2019-03-22 22:30 | NUR ---
NURSE NOTES: Patient stated she hasn't had a bowel movement in 3 days despite getting enema earlier. Message left to Dr. Davis.
[2019-03-23 00:02] VITALS: BP 138/96
[2019-03-23] MEDS: HYDROmorphone 1mg/ml Carpuject IVP PRN ×6 (01:01→21:28)
--- NOTE | 2019-03-23 01:15 | History and Physical Report ---
DATE OF ADMISSION: 03/21/2019 HISTORY OF PRESENT ILLNESS: The patient is admitted for acute pancreatitis due to alcohol. The patient has history of alcohol abuse, came in with a couple of days of nausea and vomiting. Lipase was elevated and elevated LFTs and bilirubin as well. The patient also was hypoglycemic at the emergency room. The patient complained of two days of vomiting and abdominal pain, admitted for alcoholic pancreatitis. The patient has a history of pancreatitis in the past. The patient also complained of low back pain, headache, pain all over, and chills 2 days and fatigue. PAST MEDICAL HISTORY: Significant for alcohol abuse, fatty liver, history of pancreatitis, and history of low back pain. PAST SURGICAL HISTORY: Tonsillectomy. SOCIAL HISTORY: History of smoking, history of drug abuse, and history of alcohol abuse. ALLERGIES: To iodine. MEDICATIONS: Breathing treatment p.r.n. FAMILY HISTORY: Noncontributory. REVIEW OF SYSTEMS: HEENT: She has headaches. RESPIRATORY: Denies shortness of breath. Denies cough. CARDIOVASCULAR: One time chest pain . GASTROINTESTINAL: Did have nausea as well as some abdominal pain and vomiting for two days. GENITOURINARY: Denies rectal bleeding. EXTREMITIES: She does have pain all over. CENTRAL NERVOUS SYSTEM: Denies change in speech pattern. Feels weak. PHYSICAL EXAMINATION: VITAL SIGNS: Temperature 97.9, pulse is 60, and blood pressure 138/86. HEENT: PERRLA. NECK: Supple. No lymphadenopathy. CHEST: Clear to auscultation. CARDIOVASCULAR: Regular rate and rhythm. No murmurs or extra sounds. GASTROINTESTINAL: Soft. Epigastric tenderness. No rebound. No organomegaly. EXTREMITIES: No edema. Moves all four extremities. NEUROLOGIC: Sensory is intact to light touch. Reflexes on both sides. LABORATORY DATA: WBC of 6, hemoglobin 16.3, and platelets of 213,000. Sodium 135, potassium 5, BUN of 13, and creatinine 0.9. AST of 359, ALT of 189, alkaline phosphatase of 151, and total bilirubin of 1.6. ASSESSMENT AND PLAN: 1. Elevated LFTs. 2. Alcoholic pancreatitis. 3. Vomiting. 4. Abdominal pain. I have asked Dr. Davis, Dr. Moran, Dr. Jacobson, Dr. Preston to see the patient for pain management as well as for hypoglycemia management as well as for pancreatitis as well as rule out dehydration. Mercedes Vitale M.D. DR: KAT JOB#: [id number] CC:
[2019-03-23 04:00] VITALS: BP 133/98
--- NOTE | 2019-03-23 05:00 | NUR ---
NURSE NOTES: Received new order for sorbitol prn constipation. Patient made aware.
--- NOTE | 2019-03-23 07:17 | NUR ---
HAND-OFF: Report given to Annika SUERO.
--- NOTE | 2019-03-23 07:40 | NUR ---
NURSE NOTES: Patient awake, alert x4; on room air, no sing of distress and shortness of breath; no sing of chest pain; IV Left-Wrist 24G NS 150cc; side rails up x2, breaks engaged, bed at lowest position; call light within reach; will keep monitoring.
[2019-03-23 08:00] VITALS: BP 131/95
[2019-03-23 08:46] LABS: BASOPHILS % (AUTO) 0.8 % (0.0-2.0); HEMOGLOBIN 12.5 G/DL (12.0-16.0); LYMPHOCYTES % (AUTO) 6.3 % (20.0-45.0); MEAN CORPUSCULAR VOLUME 106 FL (80-99); MONOCYTES % (AUTO) 9.2 % (1.0-10.0); NEUTROPHILS % (AUTO) 82.8 % (45.0-75.0); PLATELET COUNT 125 K/UL (150-450); RED CELL DISTRIBUTION WIDTH 12.7 % (11.6-14.8); WHITE BLOOD COUNT 7.3 K/UL (4.8-10.8)
[2019-03-23 09:04] LABS: ALANINE AMINOTRANSFERASE 77 U/L (12-78); ALBUMIN/GLOBULIN RATIO 0.9 (1.0-2.7); ALKALINE PHOSPHATASE 85 U/L (46-116); ANION GAP 11 mmol/L (5-15); ASPARTATE AMINO TRANSFERASE 85 U/L (15-37); BILIRUBIN,TOTAL 1.6 MG/DL (0.2-1.0); BLOOD UREA NITROGEN 6 mg/dL (7-18); CALCIUM 8.9 MG/DL (8.5-10.1); CARBON DIOXIDE 21 MMOL/L (21-32); CHLORIDE 101 MMOL/L (98-107); CREATININE 0.6 MG/DL (0.55-1.30); POTASSIUM 3.4 MMOL/L (3.5-5.1); SODIUM 133 MMOL/L (136-145)
[2019-03-23 09:05] LABS: BILIRUBIN,DIRECT 0.7 MG/DL (0.0-0.3)
--- NOTE | 2019-03-23 09:12 | General Progress Note ---
Assessment/Plan Assessment/Plan: (1) Abdominal pain (2) Pancreatitis Pt will be continued on Dilaudid. D/w Dr. Preston and he concurred Subjective Date patient seen: Mar 23, 2019 Time patient seen: 08:15 - am Constitutional: Reports: no symptoms HEENT: Reports: no symptoms Cardiovascular: Reports: no symptoms Respiratory: Reports: no symptoms Gastrointestinal/Abdominal: Reports: abdominal pain Genitourinary: Reports: no symptoms Neurologic/Psychiatric: Reports: no symptoms Endocrine: Reports: no symptoms Hematologic/Lymphatic: Reports: no symptoms Allergies: Coded Allergies: IODINE (Unverified Allergy, Unknown, 03/21/19) Subjective Patient is in bed and reports that the pain has been at a moderate level with the Dilaudid using 7 doses in the last 24hrs. No new complaints at this time. Objective Last 24 Hour Vital Signs Date Time Temp Pulse Resp B/P (MAP) Pulse Ox O2 Delivery O2 Flow Rate FiO2 03/23/19 08:00 98.1 108 18 131/95 (107) 99 03/23/19 05:33 99.5 03/23/19 04:00 99.5 93 18 133/98 (110) 100 03/23/19 00:02 98.7 92 20 138/96 (110) 100 03/22/19 21:00 Room Air 03/22/19 20:00 98.2 72 18 132/93 (106) 100 03/22/19 16:00 97.7 66 18 136/94 (108) 100 Intake and Output 03/22/19 03/23/19 19:00 07:00 Intake Total 1200 ml 1650 ml Balance 1200 ml 1650 ml IV Total 1200 ml 1650 ml # Voids 2 2 Laboratory Tests 03/23/19 08:05: White Blood Count 7.3, Red Blood Count 3.50L, Hemoglobin 12.5, Hematocrit 37.0, Mean Corpuscular Volume 106H, Mean Corpuscular Hemoglobin 35.7H, Mean Corpuscular Hemoglobin Concent 33.8, Red Cell Distribution Width 12.7, Platelet Count 125L, Mean Platelet Volume 7.5, Neutrophils (%) (Auto) 82.8H, Lymphocytes (%) (Auto) 6.3L, Monocytes (%) (Auto) 9.2, Eosinophils (%) (Auto) 1.0, Basophils (%) (Auto) 0.8, Sodium Level 133L, Potassium Level 3.4L, Chloride Level 101, Carbon Dioxide Level 21, Anion Gap 11, Blood Urea Nitrogen 6L, Creatinine 0.6, Estimat Glomerular Filtration Rate > 60, Glucose Level 78, Calcium Level 8.9, Total Bilirubin 1.6H, Direct Bilirubin 0.7H, Aspartate Amino Transf (AST/SGOT) 85H, Alanine Aminotransferase (ALT/SGPT) 77, Alkaline Phosphatase 85, Total Protein 6.4, Albumin 3.0L, Globulin 3.4, Albumin/Globulin Ratio 0.9L, Lipase > 2000H Height (Feet): 5 Height (Inches): 5.00 Weight (Pounds): 139 General Appearance: no apparent distress, alert EENT: PERRL/EOMI, normal ENT inspection Neck: non-tender, normal alignment Cardiovascular: normal rate, regular rhythm Respiratory/Chest: lungs clear, normal breath sounds Abdomen: tender Extremities: non-tender Edema: no edema noted Generalized Neurologic: alert, oriented x 3 Skin: warm/dry Everardo Zapata Mar 23, 2019 09:12
[2019-03-23 12:00] VITALS: BP 136/81
[2019-03-23] MEDS: Sorbitol Solution UD 30ml ORAL PRN (12:16)
--- NOTE | 2019-03-23 13:14 | GI Progress Note ---
Assessment/Plan Problems: (1) Fatty liver ICD Codes: K76.0 - Fatty (change of) liver, not elsewhere classified SNOMED: 900660879 (2) Elevated liver enzymes ICD Codes: R74.8 - Abnormal levels of other serum enzymes SNOMED: 412388680 (3) Pancreatitis ICD Codes: K85.90 - Acute pancreatitis without necrosis or infection, unspecified SNOMED: 02780916 Status: stable Status Narrative Discussed with Dr. Harper. Assessment/Plan Assessment - Alcoholic pancreatitis- lipase still elevated above 2000 - Alcoholic hepatitis - improving Recommendation maintain NPO + IVF, will consider clears tomorrow IVF Pain control anti emetics follow labs and exam The patient was seen and examined at bedside and all new and available data was reviewed in the patients chart. I agree with the above findings, impression and plan. (Patient seen earlier today. Signature stamp does not reflect patient encounter time.). - Vikas Harper MD Subjective Gastrointestinal/Abdominal: Reports: no symptoms Subjective Patient still has complaint of abdominal tenderness No reported recurrent nausea vomiting since yesterday Objective Last 24 Hour Vital Signs Date Time Temp Pulse Resp B/P (MAP) Pulse Ox O2 Delivery O2 Flow Rate FiO2 03/23/19 12:39 98.1 03/23/19 12:00 98.9 95 18 136/81 (99) 100 03/23/19 09:00 Room Air 03/23/19 08:00 98.1 108 18 131/95 (107) 99 03/23/19 04:00 99.5 93 18 133/98 (110) 100 03/23/19 00:02 98.7 92 20 138/96 (110) 100 03/22/19 21:00 Room Air 03/22/19 20:00 98.2 72 18 132/93 (106) 100 03/22/19 16:00 97.7 66 18 136/94 (108) 100 Intake and Output 03/22/19 03/23/19 18:59 06:59 Intake Total 1200 ml 1650 ml Balance 1200 ml 1650 ml IV Total 1200 ml 1650 ml # Voids 2 2 Laboratory Tests Test 03/23/19 08:05 White Blood Count 7.3 K/UL (4.8-10.8) Red Blood Count 3.50 M/UL (4.20-5.40) L Hemoglobin 12.5 G/DL (12.0-16.0) Hematocrit 37.0 % (37.0-47.0) Mean Corpuscular Volume 106 FL (80-99) H Mean Corpuscular Hemoglobin 35.7 PG (27.0-31.0) H Mean Corpuscular Hemoglobin Concent 33.8 G/DL (32.0-36.0) Red Cell Distribution Width 12.7 % (11.6-14.8) Platelet Count 125 K/UL (150-450) L Mean Platelet Volume 7.5 FL (6.5-10.1) Neutrophils (%) (Auto) 82.8 % (45.0-75.0) H Lymphocytes (%) (Auto) 6.3 % (20.0-45.0) L Monocytes (%) (Auto) 9.2 % (1.0-10.0) Eosinophils (%) (Auto) 1.0 % (0.0-3.0) Basophils (%) (Auto) 0.8 % (0.0-2.0) Sodium Level 133 MMOL/L (136-145) L Potassium Level 3.4 MMOL/L (3.5-5.1) L Chloride Level 101 MMOL/L (98-107) Carbon Dioxide Level 21 MMOL/L (21-32) Anion Gap 11 mmol/L (5-15) Blood Urea Nitrogen 6 mg/dL (7-18) L Creatinine 0.6 MG/DL (0.55-1.30) Estimat Glomerular Filtration Rate > 60 mL/min (>60) Glucose Level 78 MG/DL (74-106) Calcium Level 8.9 MG/DL (8.5-10.1) Total Bilirubin 1.6 MG/DL (0.2-1.0) H Direct Bilirubin 0.7 MG/DL (0.0-0.3) H Aspartate Amino Transf (AST/SGOT) 85 U/L (15-37) H Alanine Aminotransferase (ALT/SGPT) 77 U/L (12-78) Alkaline Phosphatase 85 U/L (46-116) Total Protein 6.4 G/DL (6.4-8.2) Albumin 3.0 G/DL (3.4-5.0) L Globulin 3.4 g/dL Albumin/Globulin Ratio 0.9 (1.0-2.7) L Lipase > 2000 U/L (73-393) H Hepatitis A IgM Antibody Pending Hepatitis B Surface Antigen Pending Hepatitis B Core IgM Antibody Pending Hepatitis C Antibody Pending HIV (1&2) Antibody Rapid Negative (NEGATIVE) Height (Feet): 5 Height (Inches): 5.00 Weight (Pounds): 139 General Appearance: WD/WN, no apparent distress, alert Cardiovascular: normal rate Respiratory/Chest: normal breath sounds, no respiratory distress Abdominal Exam: normal bowel sounds, non tender, soft Extremities: normal range of motion, non-tender Jude Gutierrez NP Mar 23, 2019 13:14
[2019-03-23 16:00] VITALS: BP 110/66
--- NOTE | 2019-03-23 17:54 | NUR ---
NURSE NOTES: I received order from MD Vitale to communicate MICAH Zapata and MD Khan regarding medications that patient can have upon discharge. MICAH Melo is covering for MD Khan and he is aware of the need for Nausea and vomiting medications upon discharge. MICAH Zapata said will assess patient tomorrow.
--- NOTE | 2019-03-23 18:58 | General Progress Note ---
Assessment/Plan Problem List: (1) Hypoglycemia ICD Codes: E16.2 - Hypoglycemia, unspecified SNOMED: 687918797 (2) Pancreatitis ICD Codes: K85.90 - Acute pancreatitis without necrosis or infection, unspecified SNOMED: 73874969 (3) Elevated liver enzymes ICD Codes: R74.8 - Abnormal levels of other serum enzymes SNOMED: 217233845 (4) Fatty liver ICD Codes: K76.0 - Fatty (change of) liver, not elsewhere classified SNOMED: 190850541 Status: stable Assessment/Plan: glucose values are stable w/o recurrence of hypoglycemia I sign off Subjective Allergies: Coded Allergies: IODINE (Unverified Allergy, Unknown, 03/21/19) All Systems: reviewed and negative except above Subjective feeling better complaining of lower abdominal pain Objective Last 24 Hour Vital Signs Date Time Temp Pulse Resp B/P (MAP) Pulse Ox O2 Delivery O2 Flow Rate FiO2 03/23/19 18:35 98.1 03/23/19 16:00 98.1 82 18 110/66 (81) 99 03/23/19 12:00 98.9 95 18 136/81 (99) 100 03/23/19 09:00 Room Air 03/23/19 08:00 98.1 108 18 131/95 (107) 99 03/23/19 04:00 99.5 93 18 133/98 (110) 100 03/23/19 00:02 98.7 92 20 138/96 (110) 100 03/22/19 21:00 Room Air 03/22/19 20:00 98.2 72 18 132/93 (106) 100 Intake and Output 03/22/19 03/23/19 19:00 07:00 Intake Total 1200 ml 1650 ml Balance 1200 ml 1650 ml IV Total 1200 ml 1650 ml # Voids 2 2 Laboratory Tests 03/23/19 08:05: White Blood Count 7.3, Red Blood Count 3.50L, Hemoglobin 12.5, Hematocrit 37.0, Mean Corpuscular Volume 106H, Mean Corpuscular Hemoglobin 35.7H, Mean Corpuscular Hemoglobin Concent 33.8, Red Cell Distribution Width 12.7, Platelet Count 125L, Mean Platelet Volume 7.5, Neutrophils (%) (Auto) 82.8H, Lymphocytes (%) (Auto) 6.3L, Monocytes (%) (Auto) 9.2, Eosinophils (%) (Auto) 1.0, Basophils (%) (Auto) 0.8, Sodium Level 133L, Potassium Level 3.4L, Chloride Level 101, Carbon Dioxide Level 21, Anion Gap 11, Blood Urea Nitrogen 6L, Creatinine 0.6, Estimat Glomerular Filtration Rate > 60, Glucose Level 78, Calcium Level 8.9, Total Bilirubin 1.6H, Direct Bilirubin 0.7H, Aspartate Amino Transf (AST/SGOT) 85H, Alanine Aminotransferase (ALT/SGPT) 77, Alkaline Phosphatase 85, Total Protein 6.4, Albumin 3.0L, Globulin 3.4, Albumin/Globulin Ratio 0.9L, Lipase > 2000H, Hepatitis A IgM Antibody [Pending], Hepatitis B Surface Antigen [Pending], Hepatitis B Core IgM Antibody [Pending], Hepatitis C Antibody [Pending], HIV (1&2) Antibody Rapid Negative Height (Feet): 5 Height (Inches): 5.00 Weight (Pounds): 139 General Appearance: no apparent distress Neck: normal alignment Cardiovascular: normal rate Respiratory/Chest: lungs clear Abdomen: normal bowel sounds Objective Current Medications Medications (Trade) Dose Ordered Sig/Cindy Route PRN Reason Start Time Stop Time Status Last Admin Dose Admin Diphenhydramine HCl (Benadryl) 25 mg Q4H PRN ORAL Itching 03/22/19 04:30 04/21/19 04:29 03/23/19 18:03 Famotidine (Pepcid I.v.) 20 mg Q12HR IVP 03/21/19 22:30 04/20/19 22:29 03/23/19 08:25 Hydromorphone HCl (Dilaudid) 1 mg Q3H PRN IVP For Pain 03/22/19 08:15 03/29/19 08:14 03/23/19 18:05 Metoclopramide HCl (Reglan) 5 mg Q6H PRN ORAL NAUSEA/VOMITING 2ND CHOICE 03/22/19 06:15 04/21/19 06:14 03/23/19 12:09 Ondansetron HCl (Zofran) 4 mg Q6H PRN IVP Nausea & Vomiting 03/21/19 20:15 04/20/19 20:14 03/23/19 18:03 Sodium Chloride 1,000 ml @ 150 mls/hr Q6H40M IV 03/21/19 22:30 04/20/19 22:29 03/23/19 14:30 Sodium Phosphate (Fleet's Sodium Phosl Enema) 133 ml Q12HR PRN RECTAL Constipation 03/22/19 09:30 04/21/19 09:29 03/22/19 11:33 Sorbitol (Sorbitol) 45 ml Q12HR PRN ORAL Constipation 03/23/19 05:00 04/22/19 04:59 03/23/19 12:16 Dimas Jacobson MD Mar 23, 2019 18:58
--- NOTE | 2019-03-23 19:29 | NUR ---
HAND-OFF: Report given to Quinton Mcghee.
--- NOTE | 2019-03-23 19:45 | NUR ---
NURSE NOTES: Pt is in bed, awake and alert.Pt is ambulatory. No acute distress noted. Pt is not complaining of pain at this moment. No nausea or vomiting now. Room air. Pt is NPO except Meds and ice chips. NS running at 150ml/hr. Bed locked low in position,side rails up and call light within reach. Pt will be monitored.
[2019-03-23 20:00] VITALS: BP 137/85
--- NOTE | 2019-03-23 20:51 | General Progress Note ---
Assessment/Plan Problem List: (1) Elevated liver enzymes ICD Codes: R74.8 - Abnormal levels of other serum enzymes SNOMED: 438889483 (2) Pancreatitis ICD Codes: K85.90 - Acute pancreatitis without necrosis or infection, unspecified SNOMED: 81310963 (3) Hypoglycemia ICD Codes: E16.2 - Hypoglycemia, unspecified SNOMED: 647154617 Status: stable Assessment/Plan: etoh pancreatitis improving diet per gi afebrile hypoglycemia resolved Subjective ROS Limited/Unobtainable: Yes Allergies: Coded Allergies: IODINE (Unverified Allergy, Unknown, 03/21/19) Objective Last 24 Hour Vital Signs Date Time Temp Pulse Resp B/P (MAP) Pulse Ox O2 Delivery O2 Flow Rate FiO2 03/23/19 18:35 98.1 03/23/19 16:00 98.1 82 18 110/66 (81) 99 03/23/19 12:00 98.9 95 18 136/81 (99) 100 03/23/19 09:00 Room Air 03/23/19 08:00 98.1 108 18 131/95 (107) 99 03/23/19 04:00 99.5 93 18 133/98 (110) 100 03/23/19 00:02 98.7 92 20 138/96 (110) 100 03/22/19 21:00 Room Air Intake and Output 03/22/19 03/23/19 18:59 06:59 Intake Total 1200 ml 1650 ml Balance 1200 ml 1650 ml IV Total 1200 ml 1650 ml # Voids 2 2 Laboratory Tests 03/23/19 08:05: White Blood Count 7.3, Red Blood Count 3.50L, Hemoglobin 12.5, Hematocrit 37.0, Mean Corpuscular Volume 106H, Mean Corpuscular Hemoglobin 35.7H, Mean Corpuscular Hemoglobin Concent 33.8, Red Cell Distribution Width 12.7, Platelet Count 125L, Mean Platelet Volume 7.5, Neutrophils (%) (Auto) 82.8H, Lymphocytes (%) (Auto) 6.3L, Monocytes (%) (Auto) 9.2, Eosinophils (%) (Auto) 1.0, Basophils (%) (Auto) 0.8, Sodium Level 133L, Potassium Level 3.4L, Chloride Level 101, Carbon Dioxide Level 21, Anion Gap 11, Blood Urea Nitrogen 6L, Creatinine 0.6, Estimat Glomerular Filtration Rate > 60, Glucose Level 78, Calcium Level 8.9, Total Bilirubin 1.6H, Direct Bilirubin 0.7H, Aspartate Amino Transf (AST/SGOT) 85H, Alanine Aminotransferase (ALT/SGPT) 77, Alkaline Phosphatase 85, Total Protein 6.4, Albumin 3.0L, Globulin 3.4, Albumin/Globulin Ratio 0.9L, Lipase > 2000H, Hepatitis A IgM Antibody [Pending], Hepatitis B Surface Antigen [Pending], Hepatitis B Core IgM Antibody [Pending], Hepatitis C Antibody [Pending], HIV (1&2) Antibody Rapid Negative Height (Feet): 5 Height (Inches): 5.00 Weight (Pounds): 139 Cardiovascular: normal rate Respiratory/Chest: lungs clear Abdomen: soft Mercedes Vitale MD Mar 23, 2019 20:50
[2019-03-24] VITALS: BP 119/84
[2019-03-24] MEDS: Sorbitol Solution UD 30ml ORAL PRN (00:24)
[2019-03-24] MEDS: HYDROmorphone 1mg/ml Carpuject IVP PRN ×3 (00:25→08:51)
--- NOTE | 2019-03-24 03:00 | NUR ---
NURSE NOTES: Pt is in bed, asleep. NS running at 160ml/hr. No acute distress noted. Pt is given sorbitol PO for constipation.
[2019-03-24 04:00] VITALS: BP 140/82
--- NOTE | 2019-03-24 04:24 | NUR ---
NURSE NOTES: Pt had a small BM after the sorbitol administration.
--- NOTE | 2019-03-24 06:50 | Consultation ---
History of Present Illness General Chief Complaint: Abdominal Pain Referring physician: Iam Reason for Consultation: Pain mangement Present Illness Allergies: Coded Allergies: IODINE (Unverified Allergy, Unknown, 03/21/19) Medication History Scheduled Albuterol Sulfate (Ventolin Hfa), 2 PUFFS INH EVERY 6 HOURS, (Reported) No Known Medications* (NKM - No Known Medications*), 0 ., (Reported) Patient History Healthcare decision maker Resuscitation status Full Code Advanced Directive on File Physical Exam Last 24 Hour Vital Signs Date Time Temp Pulse Resp B/P (MAP) Pulse Ox O2 Delivery O2 Flow Rate FiO2 03/24/19 04:00 97.9 71 20 140/82 (101) 93 03/24/19 00:00 97.7 82 18 119/84 (96) 98 03/23/19 21:00 Room Air 03/23/19 20:00 99.5 84 18 137/85 (102) 97 03/23/19 18:35 98.1 03/23/19 16:00 98.1 82 18 110/66 (81) 99 03/23/19 12:00 98.9 95 18 136/81 (99) 100 03/23/19 09:00 Room Air 03/23/19 08:00 98.1 108 18 131/95 (107) 99 Intake and Output 03/23/19 03/24/19 19:00 07:00 Intake Total 1350 ml 1350 ml Balance 1350 ml 1350 ml IV Total 1350 ml 1350 ml # Voids 6 2 Laboratory Tests Test 03/23/19 08:05 White Blood Count 7.3 K/UL (4.8-10.8) Red Blood Count 3.50 M/UL (4.20-5.40) L Hemoglobin 12.5 G/DL (12.0-16.0) Hematocrit 37.0 % (37.0-47.0) Mean Corpuscular Volume 106 FL (80-99) H Mean Corpuscular Hemoglobin 35.7 PG (27.0-31.0) H Mean Corpuscular Hemoglobin Concent 33.8 G/DL (32.0-36.0) Red Cell Distribution Width 12.7 % (11.6-14.8) Platelet Count 125 K/UL (150-450) L Mean Platelet Volume 7.5 FL (6.5-10.1) Neutrophils (%) (Auto) 82.8 % (45.0-75.0) H Lymphocytes (%) (Auto) 6.3 % (20.0-45.0) L Monocytes (%) (Auto) 9.2 % (1.0-10.0) Eosinophils (%) (Auto) 1.0 % (0.0-3.0) Basophils (%) (Auto) 0.8 % (0.0-2.0) Sodium Level 133 MMOL/L (136-145) L Potassium Level 3.4 MMOL/L (3.5-5.1) L Chloride Level 101 MMOL/L (98-107) Carbon Dioxide Level 21 MMOL/L (21-32) Anion Gap 11 mmol/L (5-15) Blood Urea Nitrogen 6 mg/dL (7-18) L Creatinine 0.6 MG/DL (0.55-1.30) Estimat Glomerular Filtration Rate > 60 mL/min (>60) Glucose Level 78 MG/DL (74-106) Calcium Level 8.9 MG/DL (8.5-10.1) Total Bilirubin 1.6 MG/DL (0.2-1.0) H Direct Bilirubin 0.7 MG/DL (0.0-0.3) H Aspartate Amino Transf (AST/SGOT) 85 U/L (15-37) H Alanine Aminotransferase (ALT/SGPT) 77 U/L (12-78) Alkaline Phosphatase 85 U/L (46-116) Total Protein 6.4 G/DL (6.4-8.2) Albumin 3.0 G/DL (3.4-5.0) L Globulin 3.4 g/dL Albumin/Globulin Ratio 0.9 (1.0-2.7) L Lipase > 2000 U/L (73-393) H Hepatitis A IgM Antibody Pending Hepatitis B Surface Antigen Pending Hepatitis B Core IgM Antibody Pending Hepatitis C Antibody Pending HIV (1&2) Antibody Rapid Negative (NEGATIVE) Height (Feet): 5 Height (Inches): 5.00 Weight (Pounds): 139 Medications Current Medications Medications (Trade) Dose Ordered Sig/Cindy Route PRN Reason Start Time Stop Time Status Last Admin Dose Admin Diphenhydramine HCl (Benadryl) 25 mg Q4H PRN ORAL Itching 03/22/19 04:30 04/21/19 04:29 03/24/19 00:24 Famotidine (Pepcid I.v.) 20 mg Q12HR IVP 03/21/19 22:30 04/20/19 22:29 03/23/19 21:27 Hydromorphone HCl (Dilaudid) 1 mg Q3H PRN IVP For Pain 03/22/19 08:15 03/29/19 08:14 03/24/19 04:16 Metoclopramide HCl (Reglan) 5 mg Q6H PRN ORAL NAUSEA/VOMITING 2ND CHOICE 03/22/19 06:15 04/21/19 06:14 03/24/19 04:13 Ondansetron HCl (Zofran) 4 mg Q6H PRN IVP Nausea & Vomiting 03/21/19 20:15 04/20/19 20:14 03/23/19 18:03 Sodium Chloride 1,000 ml @ 150 mls/hr Q6H40M IV 03/21/19 22:30 04/20/19 22:29 03/24/19 04:13 Sodium Phosphate (Fleet's Sodium Phosl Enema) 133 ml Q12HR PRN RECTAL Constipation 03/22/19 09:30 04/21/19 09:29 03/22/19 11:33 Sorbitol (Sorbitol) 45 ml Q12HR PRN ORAL Constipation 03/23/19 05:00 04/22/19 04:59 03/24/19 00:24 Assessment/Plan Assessment/Plan: Hematology Consultation RFC: Thrombocytopenia acute onset REQ MD: Mercedes Geller DOS: 03/24/19 HPI: 32-year-old female presents for evaluation of abdominal pain. She has a history of alcohol abuse and pancreatitis. Lipase >2000. Symptoms began 3 days ago with persistent epigastric and left upper quadrant sharp stabbing abdominal pain that is nonradiating. Persistent nausea, vomiting and diarrhea. Denies hematemesis or hematochezia or melena. Denies intra-abdominal surgeries in the past. Last drink was 2 days ago. Patient was noted to be tachycardic, in distress and hypoglycemic by EMS en route with a fingerstick glucose of 47. Given oral glucose and oral Zofran. Though her pancreatitis has improved, has developed a drop in platelets, and meds noted, reviewed prior sr solutions consultant recs. PMH: Pancreatitis, tonsillectomy PSH: Tonsillectomy Allergies: Iodine but tolerated IV contrast in the past Social Hx: Alcohol abuse, current tobacco use Coded Allergies: IODINE (Unverified Allergy, Unknown, 03/21/19) Patient History Now: No Nursing Documentation-PMH Hx Asthma: Yes Review of Systems All Other Systems: negative except mentioned in HPI Physical Exam General: Awake and alert HEENT: NC/AT. EOMI. Cardiovascular: RRR. S1 and S2 normal Resp: Normal work of breathing. No cough, wheezing or crackles Abdomen: Abdomen is soft, nondistended. TTp better per patient Skin: Intact. No abrasions, laceration or rash over the exposed skin MSK: Normal tone and bulk. Moving all extremities. Neuro: Awake and alert. Labs: noted Imaging: reviewed Assessment and recs: # Thrombocytopenia is likely related to alcoholic hepatitis in addition to pancreatitis --> downtrending 213-->125k --> imaging noted : Indistinct pancreatic margins and increased attenuation of the peripancreatic fat, consistent with acute pancreatitis. Evaluation for necrosis is limited in the absence of IV contrast --> smear has been noted as well --> meds have been reviewed --> coags ordered # Pancreatitis --> lipase remais >2000 --> as per gi, recs noted --> imaging with Fatty liver # Hepatitis with Elevated liver enzymes # Abdominal pain vomiting hypoglycemia. # Dehydration # Pain management # EToh abuse Priyank rn and appreciate consultation. Homer Gambino MD Mar 24, 2019 06:50
--- NOTE | 2019-03-24 07:10 | NUR ---
HAND-OFF: Report given to Diana Hicks RN.
--- NOTE | 2019-03-24 07:37 | NUR ---
NURSE NOTES: Patient awake, alert x4; on room air, no sing of distress and shortness of breath; no sing of chest pain; IV Right-Wrist 24G NS running 150cc; bed side Commode within reach; side rails up x2, breaks engaged, bed at lowest position; call light within reach; will keep monitoring.
[2019-03-24 07:39] LABS: BASOPHILS % (AUTO) 0.8 % (0.0-2.0); EOSINOPHILS % (AUTO) 2.2 % (0.0-3.0); HEMATOCRIT 34.8 % (37.0-47.0); HEMOGLOBIN 11.9 G/DL (12.0-16.0); LYMPHOCYTES % (AUTO) 8.5 % (20.0-45.0); MEAN CORPUSCULAR VOLUME 105 FL (80-99); NEUTROPHILS % (AUTO) 76.5 % (45.0-75.0); PLATELET COUNT 122 K/UL (150-450); RED CELL DISTRIBUTION WIDTH 12.6 % (11.6-14.8); WHITE BLOOD COUNT 6.1 K/UL (4.8-10.8)
[2019-03-24 07:49] LABS: ANION GAP 10 mmol/L (5-15); BLOOD UREA NITROGEN 5 mg/dL (7-18); CALCIUM 8.4 MG/DL (8.5-10.1); CARBON DIOXIDE 24 MMOL/L (21-32); CHLORIDE 100 MMOL/L (98-107); CREATININE 0.7 MG/DL (0.55-1.30); POTASSIUM 3.2 MMOL/L (3.5-5.1); SODIUM 133 MMOL/L (136-145)
--- NOTE | 2019-03-24 07:49 | General Progress Note ---
Assessment/Plan Status: stable Assessment/Plan: Assessment/Plan Problems: (1) Fatty liver ICD Codes: K76.0 - Fatty (change of) liver, not elsewhere classified SNOMED: 582194722 (2) Elevated liver enzymes ICD Codes: R74.8 - Abnormal levels of other serum enzymes SNOMED: 176974507 (3) Pancreatitis ICD Codes: K85.90 - Acute pancreatitis without necrosis or infection, unspecified SNOMED: 36992633 - Alcoholic pancreatitis- lipase still elevated above 2000 - Alcoholic hepatitis - improving Recommendation start clera thiamine/folate/MVI IVF Pain control anti emetics follow labs and exam Subjective ROS Limited/Unobtainable: Yes Allergies: Coded Allergies: IODINE (Unverified Allergy, Unknown, 03/21/19) Objective Last 24 Hour Vital Signs Date Time Temp Pulse Resp B/P (MAP) Pulse Ox O2 Delivery O2 Flow Rate FiO2 03/24/19 04:00 97.9 71 20 140/82 (101) 93 03/24/19 00:00 97.7 82 18 119/84 (96) 98 03/23/19 21:00 Room Air 03/23/19 20:00 99.5 84 18 137/85 (102) 97 03/23/19 18:35 98.1 03/23/19 16:00 98.1 82 18 110/66 (81) 99 03/23/19 12:00 98.9 95 18 136/81 (99) 100 03/23/19 09:00 Room Air 03/23/19 08:00 98.1 108 18 131/95 (107) 99 Intake and Output 03/23/19 03/24/19 19:00 07:00 Intake Total 1350 ml 2500 ml Balance 1350 ml 2500 ml Intake Oral 0 ml IV Total 1350 ml 2500 ml # Voids 6 4 Laboratory Tests 03/23/19 08:05: White Blood Count 7.3, Red Blood Count 3.50L, Hemoglobin 12.5, Hematocrit 37.0, Mean Corpuscular Volume 106H, Mean Corpuscular Hemoglobin 35.7H, Mean Corpuscular Hemoglobin Concent 33.8, Red Cell Distribution Width 12.7, Platelet Count 125L, Mean Platelet Volume 7.5, Neutrophils (%) (Auto) 82.8H, Lymphocytes (%) (Auto) 6.3L, Monocytes (%) (Auto) 9.2, Eosinophils (%) (Auto) 1.0, Basophils (%) (Auto) 0.8, Sodium Level 133L, Potassium Level 3.4L, Chloride Level 101, Carbon Dioxide Level 21, Anion Gap 11, Blood Urea Nitrogen 6L, Creatinine 0.6, Estimat Glomerular Filtration Rate > 60, Glucose Level 78, Calcium Level 8.9, Total Bilirubin 1.6H, Direct Bilirubin 0.7H, Aspartate Amino Transf (AST/SGOT) 85H, Alanine Aminotransferase (ALT/SGPT) 77, Alkaline Phosphatase 85, Total Protein 6.4, Albumin 3.0L, Globulin 3.4, Albumin/Globulin Ratio 0.9L, Lipase > 2000H, Hepatitis A IgM Antibody [Pending], Hepatitis B Surface Antigen [Pending], Hepatitis B Core IgM Antibody [Pending], Hepatitis C Antibody [Pending], HIV (1&2) Antibody Rapid Negative 03/24/19 06:20: White Blood Count 6.1, Red Blood Count 3.30L, Hemoglobin 11.9L, Hematocrit 34.8L , Mean Corpuscular Volume 105H, Mean Corpuscular Hemoglobin 36.2H, Mean Corpuscular Hemoglobin Concent 34.3, Red Cell Distribution Width 12.6, Platelet Count 122L, Mean Platelet Volume 7.9, Neutrophils (%) (Auto) 76.5H, Lymphocytes (%) (Auto) 8.5L, Monocytes (%) (Auto) 12.0H, Eosinophils (%) (Auto) 2.2, Basophils (%) (Auto) 0.8, Sodium Level [Pending], Potassium Level [Pending], Chloride Level [Pending], Carbon Dioxide Level [Pending], Blood Urea Nitrogen [ Pending], Creatinine [Pending], Estimat Glomerular Filtration Rate [Pending], Glucose Level [Pending], Calcium Level [Pending], Lipase [Pending] Height (Feet): 5 Height (Inches): 5.00 Weight (Pounds): 139 General Appearance: alert EENT: normal ENT inspection Neck: supple Cardiovascular: normal rate Respiratory/Chest: decreased breath sounds Abdomen: normal bowel sounds, non tender, soft Extremities: non-tender Vikas Harper MD Mar 24, 2019 07:49
[2019-03-24 08:00] VITALS: BP 127/81
[2019-03-24] MEDS: Thiamine 100mg tab ORAL SCH (08:48)
[2019-03-24 09:06] LABS: INR 1.2 (0.9-1.1)
--- NOTE | 2019-03-24 10:50 | General Progress Note ---
Assessment/Plan Assessment/Plan: (1) Abdominal pain (2) Pancreatitis Pt will be continued on Dilaudid reduced to Q6H PRN severe pain we will start Liberty 10/325mg PO 1 tab Q4H PRN moderate pain. An RX for Liberty 5/325mg 5 tabs and Narcan nasal spray was written in anticipation for discharge. D/w Dr. Preston and he concurred Subjective Date patient seen: Mar 24, 2019 Time patient seen: 09:30 - am Constitutional: Reports: no symptoms HEENT: Reports: no symptoms Cardiovascular: Reports: no symptoms Respiratory: Reports: no symptoms Gastrointestinal/Abdominal: Reports: abdominal pain Genitourinary: Reports: no symptoms Neurologic/Psychiatric: Reports: no symptoms Endocrine: Reports: no symptoms Hematologic/Lymphatic: Reports: no symptoms Allergies: Coded Allergies: IODINE (Unverified Allergy, Unknown, 03/21/19) Subjective Patient is in standing and walking and reports pain has reduced to a moderate level. The pain has been tolerated on the Dilaudid 7 doses in the last 24hrs. I d/w her about changing the interval of Dilaudid to Q6H and starting her on Liberty 10/325mg PO 1 tab Q4H PRN moderate pain. Objective Last 24 Hour Vital Signs Date Time Temp Pulse Resp B/P (MAP) Pulse Ox O2 Delivery O2 Flow Rate FiO2 03/24/19 09:21 97.5 03/24/19 09:00 Room Air 03/24/19 08:00 97.5 75 18 127/81 (96) 98 03/24/19 04:00 97.9 71 20 140/82 (101) 93 03/24/19 00:00 97.7 82 18 119/84 (96) 98 03/23/19 21:00 Room Air 03/23/19 20:00 99.5 84 18 137/85 (102) 97 03/23/19 16:00 98.1 82 18 110/66 (81) 99 03/23/19 12:00 98.9 95 18 136/81 (99) 100 Intake and Output 03/23/19 03/24/19 19:00 07:00 Intake Total 1350 ml 2500 ml Balance 1350 ml 2500 ml Intake Oral 0 ml IV Total 1350 ml 2500 ml # Voids 6 4 Laboratory Tests 03/24/19 06:20: White Blood Count 6.1, Red Blood Count 3.30L, Hemoglobin 11.9L, Hematocrit 34.8L , Mean Corpuscular Volume 105H, Mean Corpuscular Hemoglobin 36.2H, Mean Corpuscular Hemoglobin Concent 34.3, Red Cell Distribution Width 12.6, Platelet Count 122L, Mean Platelet Volume 7.9, Neutrophils (%) (Auto) 76.5H, Lymphocytes (%) (Auto) 8.5L, Monocytes (%) (Auto) 12.0H, Eosinophils (%) (Auto) 2.2, Basophils (%) (Auto) 0.8, Sodium Level 133L, Potassium Level 3.2L, Chloride Level 100, Carbon Dioxide Level 24, Anion Gap 10, Blood Urea Nitrogen 5L, Creatinine 0.7, Estimat Glomerular Filtration Rate > 60, Glucose Level 83, Calcium Level 8.4L, Lipase 978H 03/24/19 08:30: Prothrombin Time 12.7H, Prothromb Time International Ratio 1.2H Height (Feet): 5 Height (Inches): 5.00 Weight (Pounds): 139 General Appearance: no apparent distress, alert EENT: PERRL/EOMI, normal ENT inspection Neck: non-tender, normal alignment Cardiovascular: normal rate, regular rhythm Respiratory/Chest: lungs clear, normal breath sounds Abdomen: tender Extremities: non-tender Edema: no edema noted Generalized Neurologic: alert, oriented x 3 Skin: warm/dry Everardo Zapata Mar 24, 2019 10:50
--- NOTE | 2019-03-24 11:08 | NUR ---
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 97.5 HR 75 RR 18 B/P 127/81 RA 98% LIPASE 982 K 3.2 NA 133 PT 12.7 INR 1.2 IS: IVF NS @ 150 ML/HR PEPCID IV DILAUDID IV CLEAR LIQUID DIET MED/SURG STATUS
[2019-03-24 12:00] VITALS: BP 121/91
[2019-03-24] MEDS: HYDROcodone/Acetamin 10/325 tab ORAL PRN ×3 (12:21→22:33)
--- NOTE | 2019-03-24 14:41 | NUR ---
RD ASSESSMENT & RECOMMENDATIONS SEE CARE ACTIVITY FOR COMPLETE ASSESSMENT DAILY ESTIMATED NEEDS: Needs based on pancreatitis/ 59kg 25-30 kcals/kg 2467-6875 total kcals 1-1.5 g protein/kg 59-89 g total protein 25-30 mL/kg 1708-9326 total fluid mLs NUTRITION DIAGNOSIS: Altered nutrition related lab values R/T pancreatitis, fatty liver, clinical condition as evidenced by elev Lipase (>2000-> 978), elev T bili (1.6), elev LFTs, trend down, low K (3.2). CURRENT DIET:CLEAR LIQUID DIET PO DIET RECOMMENDATIONS: Advance diet as tolerated per MD -> LOW FAT, LOW NA ADDITIONAL RECOMMENDATIONS: * Monitor for diet advanced, PO tolerance + acceptance * Monitor lytes, replete as needed (low K) * Standing wt for accurate CBW * Monitor lipase: trending down
--- NOTE | 2019-03-24 15:06 | NUR ---
NURSE NOTES: Patient is asking if we can advance her diet; I communicated MD Harper regarding the matter; Waiting for order.
[2019-03-24 16:00] VITALS: BP 146/77
--- NOTE | 2019-03-24 17:44 | NUR ---
NURSE NOTES: Patient left the floor accompanied by staff and came back.
--- NOTE | 2019-03-24 19:30 | NUR ---
Nurses Notes Received report from Dino RN Pt awake alert oriented x4 sitting at beside accompanied by friend. Pt able to make needs known. pt on RA no acute respiratory distressed noted no s/o of pain at this time. IV to right hand running NS@ 150ml/hr patent and intact. pt denies n/v bed in lowest position call light in reach. instructed pt to call if need help. will continue to monitor provide patient care and treatment.
--- NOTE | 2019-03-24 19:30 | NUR ---
Recieved report from Annika RN Pt awake alert oriented x4 able to make needs know. Pt sitting at bedside accompanied by friend, Pt
--- NOTE | 2019-03-24 19:38 | NUR ---
HAND-OFF: Report given to NIMO Rausch.
[2019-03-24 20:00] VITALS: BP 117/79
--- NOTE | 2019-03-24 21:29 | NUR ---
Nurses noters Pt off rivas escorted by andrea MARLOW
--- NOTE | 2019-03-24 21:45 | General Progress Note ---
Assessment/Plan Problem List: (1) Elevated liver enzymes ICD Codes: R74.8 - Abnormal levels of other serum enzymes SNOMED: 172054810 (2) Pancreatitis ICD Codes: K85.90 - Acute pancreatitis without necrosis or infection, unspecified SNOMED: 89550400 (3) Hypoglycemia ICD Codes: E16.2 - Hypoglycemia, unspecified SNOMED: 806009621 Status: progressing Assessment/Plan: etoh pancreatitis improving check lipase dc planning dc if cleared by gi reviewed chart and labs Subjective ROS Limited/Unobtainable: Yes Allergies: Coded Allergies: IODINE (Unverified Allergy, Unknown, 03/21/19) Objective Last 24 Hour Vital Signs Date Time Temp Pulse Resp B/P (MAP) Pulse Ox O2 Delivery O2 Flow Rate FiO2 03/24/19 16:53 97.5 03/24/19 16:00 98.2 99 20 146/77 (100) 99 03/24/19 12:00 98.8 82 20 121/91 (101) 100 03/24/19 09:21 97.5 03/24/19 09:00 Room Air 03/24/19 08:00 97.5 75 18 127/81 (96) 98 03/24/19 04:00 97.9 71 20 140/82 (101) 93 03/24/19 00:00 97.7 82 18 119/84 (96) 98 Intake and Output 03/23/19 03/24/19 19:00 07:00 Intake Total 1350 ml 2500 ml Balance 1350 ml 2500 ml Intake Oral 0 ml IV Total 1350 ml 2500 ml # Voids 6 4 Laboratory Tests 03/24/19 06:20: White Blood Count 6.1, Red Blood Count 3.30L, Hemoglobin 11.9L, Hematocrit 34.8L , Mean Corpuscular Volume 105H, Mean Corpuscular Hemoglobin 36.2H, Mean Corpuscular Hemoglobin Concent 34.3, Red Cell Distribution Width 12.6, Platelet Count 122L, Mean Platelet Volume 7.9, Neutrophils (%) (Auto) 76.5H, Lymphocytes (%) (Auto) 8.5L, Monocytes (%) (Auto) 12.0H, Eosinophils (%) (Auto) 2.2, Basophils (%) (Auto) 0.8, Sodium Level 133L, Potassium Level 3.2L, Chloride Level 100, Carbon Dioxide Level 24, Anion Gap 10, Blood Urea Nitrogen 5L, Creatinine 0.7, Estimat Glomerular Filtration Rate > 60, Glucose Level 83, Calcium Level 8.4L, Lipase 978H 03/24/19 08:30: Prothrombin Time 12.7H, Prothromb Time International Ratio 1.2H Height (Feet): 5 Height (Inches): 5.00 Weight (Pounds): 139 Cardiovascular: normal rate Respiratory/Chest: lungs clear Abdomen: soft Mercedes Vitale MD Mar 24, 2019 21:45
[2019-03-25] VITALS: BP 125/81
[2019-03-25] MEDS: HYDROmorphone 1mg/ml Carpuject IVP PRN ×2 (00:52→08:45)
[2019-03-25 04:00] VITALS: BP 117/70
[2019-03-25] MEDS: HYDROcodone/Acetamin 10/325 tab ORAL PRN ×2 (05:03→12:02)
--- NOTE | 2019-03-25 06:57 | General Progress Note ---
Assessment/Plan Status: progressing Assessment/Plan: Assessment/Plan Problems: (1) Fatty liver ICD Codes: K76.0 - Fatty (change of) liver, not elsewhere classified SNOMED: 439665875 (2) Elevated liver enzymes ICD Codes: R74.8 - Abnormal levels of other serum enzymes SNOMED: 081001377 (3) Pancreatitis ICD Codes: K85.90 - Acute pancreatitis without necrosis or infection, unspecified SNOMED: 89242479 - Alcoholic pancreatitis- lipase still elevated above 2000 - Alcoholic hepatitis - improving Recommendation advance diet to regular thiamine/folate/MVI IVF Pain control anti emetics follow labs and exam Subjective ROS Limited/Unobtainable: Yes Allergies: Coded Allergies: IODINE (Unverified Allergy, Unknown, 03/21/19) Objective Last 24 Hour Vital Signs Date Time Temp Pulse Resp B/P (MAP) Pulse Ox O2 Delivery O2 Flow Rate FiO2 03/25/19 04:00 98.2 86 20 117/70 (86) 99 03/25/19 00:00 99.8 87 18 125/81 (96) 99 03/24/19 21:00 Room Air 03/24/19 20:00 99.1 85 18 117/79 (92) 100 03/24/19 16:53 97.5 03/24/19 16:00 98.2 99 20 146/77 (100) 99 03/24/19 12:00 98.8 82 20 121/91 (101) 100 03/24/19 09:21 97.5 03/24/19 09:00 Room Air 03/24/19 08:00 97.5 75 18 127/81 (96) 98 Intake and Output 03/24/19 03/25/19 19:00 07:00 Intake Total 1430 ml 350 ml Balance 1430 ml 350 ml Intake Oral 680 ml 200 ml IV Total 750 ml 150 ml # Voids 3 2 Laboratory Tests 03/24/19 08:30: Prothrombin Time 12.7H, Prothromb Time International Ratio 1.2H 03/25/19 06:00: White Blood Count [Pending], Red Blood Count [Pending], Hemoglobin [Pending], Hematocrit [Pending], Mean Corpuscular Volume [Pending], Mean Corpuscular Hemoglobin [Pending], Mean Corpuscular Hemoglobin Concent [Pending], Red Cell Distribution Width [Pending], Platelet Count [Pending], Mean Platelet Volume [ Pending], Neutrophils (%) (Auto) [Pending], Lymphocytes (%) (Auto) [Pending], Monocytes (%) (Auto) [Pending], Eosinophils (%) (Auto) [Pending], Basophils (%) (Auto) [Pending], Amylase Level [Pending], Lipase [Pending] Height (Feet): 5 Height (Inches): 5.00 Weight (Pounds): 139 General Appearance: alert EENT: normal ENT inspection Abdomen: soft Vikas Harper MD Mar 25, 2019 06:57
[2019-03-25 07:10] LABS: BASOPHILS % (AUTO) 1.2 % (0.0-2.0); HEMATOCRIT 34.3 % (37.0-47.0); HEMOGLOBIN 11.9 G/DL (12.0-16.0); LYMPHOCYTES % (AUTO) 24.8 % (20.0-45.0); MEAN CORPUSCULAR VOLUME 104 FL (80-99); MONOCYTES % (AUTO) 12.3 % (1.0-10.0); NEUTROPHILS % (AUTO) 57.7 % (45.0-75.0); PLATELET COUNT 141 K/UL (150-450); RED BLOOD COUNT 3.29 M/UL (4.20-5.40); RED CELL DISTRIBUTION WIDTH 12.4 % (11.6-14.8); WHITE BLOOD COUNT 4.1 K/UL (4.8-10.8)
[2019-03-25 07:20] LABS: AMYLASE 108 U/L (25-115)
--- NOTE | 2019-03-25 07:59 | NUR ---
NURSE NOTES: PT AXOX4. PT IS ARGUMENTATIVE AND ARGUING WITH NIMO BEREGR REGARDING DIET ORDER. PT VOICES SHE WANTS REGULAR DIET AND HAS BEEN ASKING SINCE LAST NIGHT. NIMO BERGER TRIED TO EXPLAIN WE NEED ORDER TO CLEAR FOR REGULAR DIET FROM DR ALVAREZ. DR ALVAREZ HAS PUT IN NEW ORDER FOR REGULAR DIET NOW AND NEED TO WAIT FOR KITCHEN TO BRING UP THE TRAY. PT CONTINUES TO ARGUE SHE HAS BEEN WAITING SINCE LAST NIGHT AND EXPRESSES IRRITATION THAT SHE HAD TO WAIT. PT TOOK OUT IV ACCESS DESPITE RN ASKING HER TO WAIT SO RN CAN GET GAUZE AND TAPE. PT TOOK OUT IV ACCESS WHEN RN LEFT THE ROOM AND STATED SHE DOESN'T NEED GAUZE WHEN RN RETURNED. NO S/S BLEEDING NOTED. PT STATES SHE'S GOING TO LEAVE, STARTED PACKING HER BELONGINGS. PT DEMANDS SHE GETS HER PRESCRIPTIONS RIGHT NOW SP SHE CAN LEAVE. RN EDUCATED PT SHE DOES NOT HAVE A DISCHARGE ORDER. IF PT CHOOSES TO LEAVE WITHOUT DISCHARGE ORDER FROM DOCTOR, IT WILL BE CONSIDERED LEAVING "AGAINST MEDICAL ADVICE". PT STATES "THEN CALL MY DOCTOR RIGHT NOW AND GET ME MY PRESCRIPTIONS. I'M GOING TO BE WAITING DOWNSTAIRS". RN EDUCATED PT IT IS AGAINST POLICY TO LET PTS OFF THE FLOOR WITHOUT SUPERVISION FROM STAFF AND THERE IS NO STAFF AVAILABLE TO TAKE PT DOWNSTAIRS". PT IGNORED RN AND TOOK THE ELEVATOR DOWNSTAIRS. RN LET CRN AWARE AND CALLED SECURITY AND MADE AWARE. RN LEFT MESSAGE ON DR ROD'S EMERGENCY LINE REGARDING PT'S REQUEST FOR DISCHARGE.
[2019-03-25 08:00] VITALS: BP 117/83
[2019-03-25] MEDS: Thiamine 100mg tab ORAL SCH (08:48)
[2019-03-25] MEDS ORDERED: NARCAN4 MG NS (11:12)
[2019-03-25] MEDS ORDERED: NORCO 5-325 TA1 EACH ORAL (11:12)
[2019-03-25 12:00] VITALS: BP 115/82
--- NOTE | 2019-03-25 14:00 | NUR ---
NURSE NOTES: RN RECEIVED ORDER FROM DR ROD FOR DISCHARGE IF CLEARED BY DR ALVAREZ AND FOLLOW UP WITH GI IN 1 WEEK. PT WAS MADE AWARE AND AGREES. CRN RECEIVED CLEARANCE FOR DISCHARGE FROM DR ALVAREZ. PT WAS EDUCATED ON DISCHARGE MEDICATIONS AND DISCHARGE PACKET. PT GIVEN DR ALVAREZ'S OFFICE ADDRESS AND OFFICE PHONE NUMBER IN CASE PT WANTS TO FOLLOW UP WITH DR ALVAREZ FOR GI. IV ACCESS DISCONTINUED. BELONGINGS WERE CHECKED WITH CRN. PT WAS DISCHARGED IN STABLE CONDITION.
--- NOTE | 2019-03-25 20:36 | Discharge Summary ---
Discharge Summary Discharge Summary _ DATE OF ADMISSION: 03/21/2019 DATE OF DISCHARGE: 03/25/2019 DISCHARGED BY: Dr Vitale REASON FOR ADMISSION: 33 years old female with history of alcohol induced pancreatitis, presented to emergency department for evaluation of abdominal pain and nonbloody vomiting. Patient also found to have hypoglycemia. AST 359, ALT 189 ,lipase 968. CT of abdomen pelvis revealed indistinct pancreatic margins and increased attenuation of the peripancreatic fat, consistent with acute pancreatitis. Evaluation for necrosis was limited in the absence of IV contrast Enlarged fatty liver Patient started on the IV fluids , provided with antiemetic, antiacid and analgesia and admitted for further management. CONSULTANTS: GI specialist Dr Davis fashion editor/oncologist Dr. Gambino endocrinology Dr. Jacobson pain specialist Dr. Preston [facility] COURSE: Patient admitted to medical surgical floor. Patient started on IV fluids and kept n.p.o. Antiemetic provided as needed. Pain management was provided as per pain specialist recommendation. LFT and lipase were trending. Abdominal ultrasound revealed no evidence of gallstones or dilated bile ducts. Slight peripancreatic edema. Fatty liver. Thiamine, folate ,multivitamin provided. Patient slowly started on diet and was advanced as tolerated. Lipase initially trended up . then started to trend down, still elevated. AST trended down to 85 ALT down to normal . potassium was replaced. GI prophylaxis provided. Blood sugar was closely monitored. Glucose levels remained stable without recurrence of hypoglycemia. Per seamstress fitter, hypoglycemia was due to poor oral intake. Patient noted to have thrombocytopenia. Per fashion editor thrombocytopenia was related to liver disease. Platelet count was closely monitored, trending up, prior to discharge 141. Patient clinically stabilized and was ready for discharge home. Patient was strongly advised on cessation of alcohol. FINAL DIAGNOSES: Alcoholic pancreatitis Fatty liver Elevated liver enzymes Alcoholic hepatitis Thrombocytopenia Dehydration Hypoglycemia-resolved DISCHARGE MEDICATIONS: See Medication Reconciliation list. DISCHARGE INSTRUCTIONS: Patient was discharged home. Follow-up with a primary care provider in 1 week. Patient was strongly advised on cessation of alcohol I have been assigned to dictate discharge summary for this account. I was not involved in the patient's management. Alecia Casarez NP Mar 25, 2019 20:36
== END 2019-03-25 13:43 | disposition home or self-care (01) | DRG 282 ==
LOC: EDBD 15:05 → EMR 15:24 → 4E 16:50 → EDBEDREQ 16:57
DX: K85.20 Alcohol induced acute pancreatitis without necrosis or infection (principal); K76.0 Fatty (change of) liver, not elsewhere classified; K70.10 Alcoholic hepatitis without ascites; D69.6 Thrombocytopenia, unspecified; E86.0 Dehydration; E16.2 Hypoglycemia, unspecified; F17.200 Nicotine dependence, unspecified, uncomplicated; F10.10 Alcohol abuse, uncomplicated; Z88.8 Allergy status to other drugs, medicaments and biological substances
CPT/HCPCS: 36415; 74176; 76700; 80048; 80053; 81003; 81025; 82150; 82248; 82962; 83690; 85007; 85025; 85610; 86703; 86705; 86709; 86803; 87340; 96361; 96374; 96375; 96376; 99285; J2405; J7030; J8499